=== PATIENT | female | born 1980 | race American Indian/Alaskan Native ===

== ENCOUNTER 2017-02-22 09:33 | Outpatient (CLI) | payer BC ==
--- NOTE | 2017-02-22 16:39 | Ultrasound Report ---
ABDOMINAL ULTRASOUND: 02/22/17 09:33:00 CLINICAL: Abdominal pain. FINDINGS: High-resolution ultrasound demonstrated a normal liver with normal size, contour and echogenicity. No liver mass. Normal hepatic vasculature and inferior vena cava. Normal gallbladder and bile ducts. The gallbladder wall measures 1 mm thick. The common bile duct measured 2 mm diameter. The pancreas was well imaged and normal Normal abdominal aorta. The spleen measured 8.9 cm. Normal kidneys with normal echogenicity and normal non-dilated renal collecting systems and ureters. The right kidney measured 10.4 x 4.2 x 4.1cm. The left kidney measured 9.9 x 6.2 x 3.6cm. No renal mass or calculus. No ascites or mass. IMPRESSION: Normal study.
== END 2017-02-22 09:34 | disposition home or self-care (01) ==
LOC: SPVWC 09:33
PROVIDERS: ATTEND Internal Medicine Hematology & Oncology
DX: R10.84 Generalized abdominal pain (principal); D64.9 Anemia, unspecified
CPT/HCPCS: 76700